=== PATIENT | male | born 1995 | race Caucasian/White ===

== ENCOUNTER 2018-02-03 06:20 | Emergency (ER) | payer SELFPAY ==
[~2018-02-03] VITALS: Ht 167.6 cm; Wt 82.0 kg
[2018-02-03 08:05] VITALS: BP 123/71
== END 2018-02-03 08:14 | disposition home or self-care (01) ==
LOC: ER 06:20
DX: F12.929 Cannabis use, unspecified with intoxication, unspecified (principal)
CPT/HCPCS: 99283